=== PATIENT | female | born 1995 | race Caucasian/White ===

== ENCOUNTER 2022-02-05 20:04 | Inpatient (IN) ==
[2022-02-05] MEDS ORDERED: FAMOTIDINE 20 MG/2 ML VIAL IV PRN (20:29)
[2022-02-05] MEDS ORDERED: CARBOPROST TROMETHAMINE 250 MCG/ML AMP IM PRN (20:29)
[2022-02-05] MEDS ORDERED: TRANEXAMIC ACID 1,000 MG in SODIUM CHLORIDE 0.9% 100 ML IV PRN (20:29)
[2022-02-05] MEDS ORDERED: miSOPROStoL 200 MCG TABLET RECTAL PRN (20:29)
[2022-02-05] MEDS ORDERED: TERBUTALINE 1 MG/1 ML VIAL SUBCUT PRN (20:29)
[2022-02-05] MEDS ORDERED: METHYLERGONOVINE 0.2 MG/1 ML AMP IM PRN (20:29)
[2022-02-05] MEDS ORDERED: ONDANSETRON 4 MG/2 ML VIAL IV PRN (20:29)
[2022-02-05] MEDS ORDERED: MEPERIDINE 50 MG/1 ML VIAL IV PRN ×2 (20:29→20:42)
[2022-02-05] MEDS ORDERED: BUTORPHANOL 1 MG/ML VIAL IV PRN (20:29)
[2022-02-05] MEDS ORDERED: ACETAMINOPHEN 500 MG TABLET PO PRN (20:29)
[2022-02-05] MEDS ORDERED: BUTORPHANOL 2 MG/ML VIAL IV PRN (20:29)
[2022-02-05] MEDS ORDERED: OXYTOCIN/LR 20 UNIT/1,000 ML BAG IV ONE (21:00)
[2022-02-05] MEDS ORDERED: LACTATED RINGERS 250 ML IV ONE (21:00)
[2022-02-05] MEDS ORDERED: LACTATED RINGERS 1,000 ML IV SCH (21:00)
[2022-02-05 21:04] LABS: Basophils % 0.1 % (0.0-0.8); Eosinophils # 0.2 10*3/uL (0.0-0.87); Eosinophils % 1.8 % (0.00-10.9); Hematocrit 26.5 VOL% (35.7-47.0); Hemoglobin 8.6 GM/DL (12.0-16.0); Immature Granulocytes % 0.6 %; Immature Granulocytes Absolute 0.06 #; Lymphocytes # 0.9 10*3/uL (1.4-4.0); Lymphocytes % 8.8 % (21.3-54.2); Mean Corpuscular HGB Conc 32.5 GM/DL (32-36); Mean Corpuscular Volume 77.9 FL (87-102); Mean Platelet Volume 10.7 FL (9.6-12.0); Monocytes # 0.7 10*3/uL (0.11-0.8); Monocytes % 6.6 % (1.7-12.7); Neutrophils % 82.1 % (38.7-73.9); Platelet Count 292 T/CUMM (130-400); Red Cell Distribution Width 13.6 % (9.3-17.3); White Blood Count 10.3 T/CUMM (4-12)
[2022-02-05 21:23] LABS: Alanine Aminotransferase 15 U/L (13-56); Albumin 2.7 G/DL (3.4-5.0); Alkaline Phosphatase 182 U/L (45-117); Aspartate Amino Transferase 16 U/L (0-37); Bilirubin,Total < 0.39 MG/DL (0.20-1.00); Blood Urea Nitrogen 9 MG/DL (7-18); Calcium 8.9 MG/DL (8.5-10.1); Carbon Dioxide 21 MMOL/L (21-32); Chloride 108 MMOL/L (98-107); Glucose 101 MG/DL (74-106); Osmolality,Calculated 271.8 MOS/KG (273-304); Potassium 3.6 MMOL/L (3.5-5.1); Sodium 137 MMOL/L (136-145); Total Protein 7.4 G/DL (6.4-8.2)
[2022-02-06] MEDS ORDERED: OXYTOCIN/LR 20 UNIT/1,000 ML BAG IV SCH (08:00)
[2022-02-06] MEDS ORDERED: PROMETHAZINE 25 MG/1 ML VIAL IM ONE (08:23)
[2022-02-06] MEDS ORDERED: NALOXONE 0.4 MG/ML VIAL IV PRN (08:23)
[2022-02-06] MEDS ORDERED: ONDANSETRON 4 MG/2 ML VIAL IV ONE (08:23)
[2022-02-06] MEDS ORDERED: FAMOTIDINE 20 MG/2 ML VIAL IV ONE (08:23)
[2022-02-06] MEDS ORDERED: ePHEDrine 50 MG/ML VIAL IV PRN (08:23)
[2022-02-06] MEDS ORDERED: LACTATED RINGERS 1,000 ML IV ONE (08:23)
[2022-02-06] MEDS ORDERED: hydrOXYzine HCL 25 MG/1 ML VIAL IM PRN (08:23)
[2022-02-06] MEDS ORDERED: CITRIC ACID/SODIUM CITRATE 30 ML UDCUP PO ONE (08:23)
[2022-02-06] MEDS ORDERED: diphenhydrAMINE 50 MG/1 ML VIAL IV PRN ×2 (08:23)
[2022-02-06] MEDS ORDERED: fentaNYL 2 MCG/ROPIV 0.2% EPID 100 ML EPIDURAL SCH (08:30)
[2022-02-06] MEDS ORDERED: TRANEXAMIC ACID 1,000 MG/10 ML VIAL ONE (10:33)
[2022-02-06] MEDS ORDERED: miSOPROStoL 200 MCG TABLET ONE (10:33)
[2022-02-06] MEDS ORDERED: METHYLERGONOVINE 0.2 MG/1 ML AMP ONE (10:34)
[2022-02-06] MEDS ORDERED: CARBOPROST TROMETHAMINE 250 MCG/ML AMP IM ONE (10:34)
[2022-02-06] MEDS ORDERED: SODIUM CHLORIDE 0.9% 0 ML IV ONE (10:35)
[2022-02-06 11:33] LABS: Cord Arterial Blood HCO3 17.4 MMOL/L
[2022-02-06 11:35] LABS: Cord Venous Blood HCO3 20.8 MMOL/L; Cord Venous Blood PCO2 46.9 MMHG; Cord Venous Blood PO2 25.6
[2022-02-06] MEDS ORDERED: oxyCODONE/ACETAMINOPHEN 5-325 MG TABLET PO PRN ×2 (14:15)
[2022-02-06] MEDS ORDERED: RHO(D) IMMUNE GLOBULIN 300 MCG SYRINGE IM ONE (14:15)
[2022-02-06] MEDS ORDERED: ACETAMINOPHEN 325 MG TABLET PO PRN (14:15)
[2022-02-06] MEDS ORDERED: HYDROCORTISONE 2.5% RECTAL CREAM 30 GM TUBE TOP PRN (14:15)
[2022-02-06] MEDS ORDERED: DIPH/TET/ACEL PERT BOOSTER VACCINE 0.5 ML VIAL IM ONE (14:15)
[2022-02-06] MEDS ORDERED: LANOLIN 50% CREAM 0.3 OZ TUBE TOP PRN (14:15)
[2022-02-06] MEDS ORDERED: MEASLES/MUMPS/RUBELLA VACCINE 0.5 ML VIAL SUBCUT ONE (14:15)
[2022-02-06] MEDS ORDERED: BISACODYL 10 MG SUPP RECTAL PRN (14:15)
[2022-02-06] MEDS ORDERED: ONDANSETRON 4 MG/2 ML VIAL IV PRN (14:15)
[2022-02-06] MEDS ORDERED: OXYTOCIN/LR 20 UNIT/1,000 ML BAG IV ONE (14:15)
[2022-02-06] MEDS ORDERED: WITCH HAZEL PADS 100/JAR TOP PRN (14:15)
[2022-02-06] MEDS ORDERED: BENZOCAINE 20%/MENTHOL 0.5% SPRAY 56 GM CAN TOP PRN (14:15)
[2022-02-06] MEDS: DOCUSATE SODIUM 100 MG CAPSULE PO SCH (20:53)
[2022-02-07] MEDS: IBUPROFEN 800 MG TABLET PO PRN ×2 (01:08→14:40)
[2022-02-07 06:03] LABS: Basophils % 0.1 % (0.0-0.8); Eosinophils # 0.2 10*3/uL (0.0-0.87); Eosinophils % 2.1 % (0.00-10.9); Hematocrit 22.8 VOL% (35.7-47.0); Hemoglobin 7.1 GM/DL (12.0-16.0); Immature Granulocytes % 0.5 %; Immature Granulocytes Absolute 0.05 #; Lymphocytes # 1.4 10*3/uL (1.4-4.0); Lymphocytes % 14.6 % (21.3-54.2); Mean Corpuscular HGB Conc 31.1 GM/DL (32-36); Mean Corpuscular Volume 80.6 FL (87-102); Monocytes # 0.7 10*3/uL (0.11-0.8); Monocytes % 7.2 % (1.7-12.7); Neutrophils % 75.5 % (38.7-73.9); Platelet Count 236 T/CUMM (130-400); Red Blood Count 2.83 MC/CUMM (3.8-5.5); Red Cell Distribution Width 13.4 % (9.3-17.3); White Blood Count 9.6 T/CUMM (4-12)
[2022-02-07] MEDS ORDERED: FERROUS SULFATE 325 MG TABLET PO SCH (09:00)
[2022-02-07] MEDS: FERROUS SULFATE 325 MG TABLET PO SCH ×3 (09:15→21:46)
[2022-02-07] MEDS: DOCUSATE SODIUM 100 MG CAPSULE PO SCH ×2 (09:15→21:46)
[2022-02-07] MEDS ORDERED: PROMETHAZINE 25 MG TABLET PO PRN (17:09)
[2022-02-08] MEDS: IBUPROFEN 800 MG TABLET PO PRN (04:37)
[2022-02-08 07:28] VITALS: BP 116/66
[2022-02-08] MEDS: FERROUS SULFATE 325 MG TABLET PO SCH (09:40)
[2022-02-08] MEDS: DOCUSATE SODIUM 100 MG CAPSULE PO SCH (09:40)
== END 2022-02-08 12:00 | disposition home or self-care (01) | DRG 807 ==
LOC: N.LD 20:04 → N.OB 02-06 14:02
PROVIDERS: ADMIT Specialist; ATTEND Specialist